=== PATIENT | male | born 1980 | race African-American/Black ===

== ENCOUNTER 2017-07-27 01:54 | Emergency (ER) | payer SELFPAY ==
[~2017-07-27] VITALS: Ht 193 cm; Wt 110.0 kg
[2017-07-27 01:55] VITALS: BP 123/78; PULSE 92; RESP 16; TEMP 98.6; O2SAT 96
--- NOTE | 2017-07-27 02:29 | PD ---
HPI Chief Complaint: Complaint Time Seen by Provider: 02:26 Travel History International Travel<30 days: No Contact w/Intl Traveler<30days: No Traveled to known affect area: No History of Present Illness HPI 37-year-old male here for evaluation of dysuria. He reports over the past 2 days he has had a burning sensation when he urinates. Symptoms are mild, aggravated by urinating with no alleviating factors. He reports that he recently had sexual relations with an ex-girlfriend and is concerned that he may have been exposed to an STD. He denies any urethral discharge, testicular or scrotal pain, genital rashes, nausea or vomiting, abdominal pain, flank pain. No other complaints. PFSH Past Medical History Medical History: Denies Significant Hx Diminished Hearing: No Tetanus Vaccination: < 5 Years Influenza Vaccination: No Past Surgical History Surgical History: No Previous Surgery Social History Alcohol Use: Yes Tobacco Use: Yes (black and milds) Substance Use: Yes (MARIJAUNA) Allergies-Medications (Allergen,Severity, Reaction): Coded Allergies: No Known Allergies (Verified Adverse Reaction, Unknown, 07/27/17) Reported Meds & Prescriptions Reported Meds & Active Scripts Active No Active Prescriptions or Reported Medications Review of Systems General / Constitutional: No: Fever, Chills Gastrointestinal: No: Nausea, Vomiting, Abdominal Pain Genitourinary: Positive: Dysuria, No: Urgency, Frequency, Flank Pain Skin: No Rash Physical Exam Narrative GENERAL: Well-nourished male in no acute distress SKIN: Warm and dry. HEAD: Atraumatic. Normocephalic. EYES: Pupils equal and round. No scleral icterus. No injection or drainage. ENT: No nasal bleeding or discharge. Mucous membranes pink and moist. NECK: Trachea midline. No JVD. CARDIOVASCULAR: Regular rate and rhythm. No murmur appreciated. RESPIRATORY: No accessory muscle use. Clear to auscultation. Breath sounds equal bilaterally. GASTROINTESTINAL: Abdomen soft, non-tender, nondistended. Hepatic and splenic margins not palpable. examination reveals normal appearing scrotum, penile shaft with no urethral discharge, no rashes. MUSCULOSKELETAL: No obvious deformities. No clubbing. No cyanosis. No edema. NEUROLOGICAL: Awake and alert. No obvious cranial nerve deficits. Motor grossly within normal limits. Normal speech. PSYCHIATRIC: Appropriate mood and affect; insight and judgment normal. Data Data Last Documented VS Vital Signs Date Time Temp Pulse Resp B/P (MAP) Pulse Ox O2 Delivery O2 Flow Rate FiO2 07/27/17 01:55 98.6 92 16 123/78 (93) 96 Room Air Orders Orders Ed Discharge Order (07/27/17 02:27) Gc And Chlamydia Pcr (07/27/17 02:27) Azithromycin Powd Pack (Zithromax Powd P (07/27/17 02:30) Ceftriaxone Inj (Rocephin Inj) (07/27/17 02:30) Lidocaine 1% Inj (50 Ml) (Xylocaine 1% I (07/27/17 02:30) MDM Medical Decision Making Medical Screen Exam Complete: Yes Emergency Medical Condition: Yes Medical Record Reviewed: Yes Differential Diagnosis Urethritis-gonococcal versus nongonococcal versus cystitis Narrative Course The patient will be treated empirically for chlamydia and gonorrhea pending PCR results. Stable for discharge. Diagnosis Primary Impression: Urethritis Referrals: [facility]. Additional Instructions: Follow-up at the [facility] for routine STD testing. Have all partners tested and treated for STDs prior to relations. Consider barrier protection in the future. Med/Other Pt SpecificInfo: No Change to Meds Scripts No Active Prescriptions or Reported Meds Disposition: 01 DISCHARGE HOME Condition: Stable Star Guzman Jul 27, 2017 02:29
[2017-07-27] MEDS ORDERED: cefTRIAXone 250 MG VIAL IM ONE (02:30)
[2017-07-27] MEDS ORDERED: LIDOCAINE HCL 1% 50 ML VIAL XX ONE (02:30)
[2017-07-27] MEDS ORDERED: AZITHROMYCIN PWD FOR SUSP 1 GM PACKET PO ONE (02:30)
== END 2017-07-27 03:24 | disposition home or self-care (01) ==
LOC: NEPD 01:54
DX: N34.2 Other urethritis (principal); Z72.0 Tobacco use
CPT/HCPCS: 87491; 87591; 96372; 99284; J0696